=== PATIENT | female | born 1995 | race Caucasian/White ===

== ENCOUNTER → 2018-03-06 | Day surgery (SDC) | payer OTHER ==
[~2018-03-06] VITALS: Ht 170.2 cm; Wt 65.3 kg
[~2018-03-06] MED LIST: ANTI-INFLAMMATORY PO; ZOLOFT50 MG PO
--- NOTE | ~2018-03-06 | O ---
[address] [address] OPERATIVE REPORT Name: TAMMY GREENBERG Room #: REG [facility]#: [id number] Admission: 03/06/18 Attend Phys: North Busby MD Discharge: Date of : [birth year] Report #: [id number] THIS REPORT FOR: //name// CC: North Ling DATE OF SERVICE: 03/06/2018 SERVICE: Orthopedics. FACILITY: [facility]. SURGEON: North Busby MD CARD PAINTER: Felicia Starkey, nurse practitioner. PREOPERATIVE DIAGNOSES: 1. Right knee stiffness. 2. Status post right knee anterior cruciate ligament and medial collateral ligament reconstruction. POSTOPERATIVE DIAGNOSES: 1. Right knee stiffness. 2. Status post right knee anterior cruciate ligament and medial collateral ligament reconstruction. PROCEDURE: Arthroscopic lysis of adhesions with manipulation under anesthesia, right knee. COMPLICATIONS: None. DRAINS: None. SPECIMENS: None. ANESTHESIA: General. TOURNIQUET TIME: 47 minutes. FINDINGS: Postoperative range of motion 0-130 degrees. HISTORY AND INDICATIONS: The patient is a 22-year-old female who sustained a traumatic ACL and MCL injury earlier this year. She was treated conservatively for a period of time to restore her range of motion and gait, and continued to have valgus instability as well as her torn ACL. She went for surgical reconstruction. She did well initially, but was developing stiffness that was [address] [address] OPERATIVE REPORT Name: TAMMY GREENBERG Room #: REG [facility]#: [id number] Admission: 03/06/18 Attend Phys: North Busby MD Discharge: Date of : [birth year] Report #: [id number] recalcitrant to therapy and we were concerned because she would be leaving for college and she might have some gap in her ability to continue to rehabilitate. We collectively decided to move forward with manipulation and surgical lysis of adhesions to minimize complications further. Risks, benefits, alternatives and indication for surgery were discussed with her as well as with her parents. She elected to undergo revision surgery for manipulation under anesthesia and lysis of adhesions. Risks, benefits, alternatives were discussed. Risks include but not limited to pain, bleeding, infection, injury to nerves or blood vessels, recurrent stiffness, need for further surgery as well as complications related to anesthesia. PROCEDURE IN DETAIL: After right lower extremity was correctly identified in preoperative holding area as the operative extremity, the patient was taken to the operating room where general anesthesia was induced without complication. She was padded appropriately. Prophylactic antibiotics were administered at appropriate time. Tourniquet was applied to right lower extremity. Right leg was prepped and draped in a standard sterile fashion. Time-out procedure was performed. Anterolateral and anteromedial portals were established in typical fashion. Diagnostic arthroscopy was performed. Her articular cartilage was intact. The medial and lateral menisci were intact. Her examination under anesthesia demonstrated both the ACL and the MCL grafts to be functional. Under arthroscopy the ACL was intact. There was some scarring to the anterior aspect of the ACL. Most of her adhesions were present between the retropatellar space and in the anterior notch and these were sequentially resected with a shaver as well as electrocautery, which provided improved visualization. Initially, upon placement of the scope into the knee, it was difficult to even see across the patellofemoral articulation due to the scarring. Most of her scarring again was inferior to the patella in the anterior aspect of the knee. Her manipulation under anesthesia, which was performed prior to our arthroscopy, allowed achievement of full flexion and we still lacked approximately 5-8 degrees of extension. Ultimately this was recovered with the arthroscopic lysis of adhesions. The anterior interval release was taken down the front of the knee, both with the scope medially as well as with the scope laterally, ensuring resection of the soft tissues back to the anterior aspect of the tibia and then anteriorly until visualization of the backside of the patellar tendon could be performed. No lateral release was required because she had good medial to lateral patellar mobility. There was some scarring in the suprapatellar pouch, which was resected with the shaver as well. After this was all completed, the arthroscopic effusion was drained, the instruments were removed from the knee and an Esmarch was used to drain as much soft tissue swelling as possible to minimize discomfort and continued swelling. The portal sites were closed with a deep absorbable stitch. Sterile dressing was applied followed by compression [address] [address] OPERATIVE REPORT Name: RASHARD GREENBERGN Hema Room #: REG [facility] [place] Hema.Herrera.#: [id number] Admission: 03/06/18 Attend Phys: North Busby MD Discharge: Date of : 89 Report #: [id number] stocking. The patient was transferred off the operating table to the hospital bed, taken to recovery room in stable condition. There were no complications and all counts were recorded as correct. By: 1822 [id number] North Busby MD /del
[2018-03-06 08:54] VITALS: BP 114/65
[2018-03-06 11:53] VITALS: BP 114/65
== END | disposition home or self-care (01) ==
LOC: OR 08:08
DX: M25.661 Stiffness of right knee, not elsewhere classified (principal); Z98.890 Other specified postprocedural states; J45.909 Unspecified asthma, uncomplicated
CPT/HCPCS: 50010; 50101; 50405; 51038; 51445; 54170; 56527; 57103; 62110; 62900; 70005